=== PATIENT | female | born 1965 | race Caucasian/White ===

== ENCOUNTER → 2018-05-02 | Outpatient (REF) | payer BC, OTHER | LOC: M LAB REF 16:23 | PROVIDERS: ATTEND Nurse Practitioner Family | DX: L30.9 Dermatitis, unspecified (principal); N76.0 Acute vaginitis ==

== ENCOUNTER → 2019-07-20 | Outpatient (REF) | payer BC ==
[2019-07-20 22:28] LABS: INFLUENZA A AMPLIFICATION POSITIVE (NEGATIVE); INFLUENZA B AMPLIFICATION NEGATIVE (NEGATIVE)
== END ==
LOC: M LAB REF 21:34
PROVIDERS: ATTEND Physician Assistant Medical
DX: J11.1 Influenza due to unidentified influenza virus with other respiratory manifestations (principal); J02.0 Streptococcal pharyngitis

== ENCOUNTER 2019-09-30 22:51 | Emergency (ER) | payer BC ==
[~2019-09-30] VITALS: Ht 162.6 cm; Wt 68.3 kg
[2019-09-30] MEDS ORDERED: JANU100T PO (22:59)
[2019-09-30] MEDS ORDERED: LISI2.5T2 PO (22:59)
[2019-09-30] MEDS ORDERED: ASPI81CH4 PO (22:59)
[2019-09-30] MEDS ORDERED: OXYB5TAB10 PO (22:59)
[2019-09-30] MEDS ORDERED: NOXI1TAB PO (22:59)
[2019-09-30] MEDS ORDERED: ATOR1TAB21 PO (22:59)
[2019-09-30] MEDS ORDERED: LANTINJ4 SC (22:59)
[2019-09-30] MEDS ORDERED: PROZ10CA7 PO (22:59)
[2019-09-30] MEDS ORDERED: VALA500T5 PO (22:59)
--- NOTE | 2019-10-01 01:19 | REPVR ---
PROCEDURE INFORMATION: Exam: XR Left Hip with Pelvis when Performed Exam date and time: 09/30/2019 11:48 PM Age: 54 years old Clinical indication: Injury or trauma; Fall; Initial encounter; Fracture of pelvis & hip; Left; Not specified; Neck of femur; Closed fracture TECHNIQUE: Imaging protocol: XR Left hip with pelvis when performed. Views: 2 or 3 views. COMPARISON: No relevant prior studies available. FINDINGS: Bones/joints: Linear lucency involving left greater trochanter concerning for nondisplaced fracture. Soft tissues: Unremarkable. IMPRESSION: Linear lucency involving left greater trochanter concerning for nondisplaced fracture. Electronically signed by: Peter Santillan On 10/01/2019 01:19:42 AM
[2019-10-01] MEDS ORDERED: IBUP-1114 PO (01:51)
[2019-10-01] MEDS ORDERED: KETOROLAC 60MG 2ML VIAL IM ONE (02:00)
[2019-10-01 02:44] VITALS: BP 138/88
== END 2019-10-01 02:47 | disposition home or self-care (01) ==
LOC: M ED 22:51
DX: S72.115A Nondisplaced fracture of greater trochanter of left femur, initial encounter for closed fracture (principal); W01.0XXA Fall on same level from slipping, tripping and stumbling without subsequent striking against object, initial encounter; Y92.099 Unspecified place in other non-institutional residence as the place of occurrence of the external cause; Y93.9 Activity, unspecified; Y99.9 Unspecified external cause status; E11.9 Type 2 diabetes mellitus without complications; Z79.899 Other long term (current) drug therapy; Z79.82 Long term (current) use of aspirin; Z79.4 Long term (current) use of insulin
CPT/HCPCS: 73502; 96374; 99284; J1885